=== PATIENT | female | born 1975 | race Hispanic/Latino ===

== ENCOUNTER 2018-11-09 09:55 | Outpatient (CLI) | payer MEDICARE, MEDICAID | END 2018-11-09 09:56 | disposition home or self-care (01) | LOC: C.PAT 09:55 | DX: T83.32XA Displacement of intrauterine contraceptive device, initial encounter (principal) ==

== ENCOUNTER 2018-11-13 09:20 | Day surgery (SDC) | payer MEDICARE, MEDICAID ==
[2018-11-13 10:13] VITALS: BMI 35.2
[2018-11-13] MEDS ORDERED: Dexamethasone 4 mg/1 ml IVP PRN (12:11)
[2018-11-13] MEDS ORDERED: HYDROmorphone 0.5 mg/0.5 ml ISec IVP PRN (12:11)
[2018-11-13] MEDS ORDERED: Midazolam 2 MG/2 ML VIAL ONE (12:47)
[2018-11-13] MEDS ORDERED: Propofol 10 mg/ml Inj (20 ML) ONE (12:47)
[2018-11-13] MEDS: Doxycycline 100 mg Inj ONE ×2 (13:10→13:20)
[2018-11-13] MEDS ORDERED: Lactated Ringer's 500 ML IV ONE (14:00)
[2018-11-13] MEDS ORDERED: Etomidate 20 mg/10ml Inj IV ONE (14:05)
[2018-11-13] MEDS ORDERED: DiphenhydrAMINE 50 mg/ml Inj ONE (14:47)
[2018-11-13] MEDS ORDERED: DiphenhydrAMINE 50 mg/ml Inj IVP STA (14:57)
[2018-11-13 17:11] VITALS: BP 103/58; PULSE 75; RESP 18; TEMP 97.8; O2SAT 97
--- NOTE | 2018-11-14 02:19 | OP ---
PROCEDURE DATE: 11/13/2018 PREOPERATIVE DIAGNOSIS: Retained foreign body. POSTOPERATIVE DIAGNOSIS: Retained foreign body intrauterine device. PROCEDURES PERFORMED: Hysteroscopic removal of retained foreign body, dilation and curettage. SURGEON: Amelia Lemus MD SENIOR COMPENSATION ANALYST: None. ANESTHESIA: General LMA. OPERATIVE FINDINGS: Enlarged 10-week size anteverted uterus with IUD embedded within right cornua, a fallopian tube string within near the fundus. Bilateral ostia visualized. Normal-appearing uterine cavity otherwise noted. ESTIMATED BLOOD LOSS: 10 mL. COMPLICATIONS: None. SPECIMEN: Retained foreign body intrauterine device. DESCRIPTION OF PROCEDURE: The patient was taken to the operating room where she was given general anesthesia. Once it was found to be adequate, she was placed on the operating room table in dorsal supine position with legs supported using stirrups. The patient was then prepped and draped in the usual sterile fashion. A time-out was performed to confirm correct patient and correct procedure. Bimanual exam was performed with the above-mentioned findings. Kwong retractor was placed on the anterior and posterior fornix of the vagina. The cervix was adequately visualized. A single-tooth tenaculum was placed on the anterior lip of the cervix. There was no IUD string noted at the cervical os. IUD hook was used to help the release of strings, which was not done. The cervix was carefully sequentially dilated to allow for introduction of the hysteroscope under direct visualization using normal saline as the distention media. The IUD was noted to be within the right cornua of the fallopian tube at the close proximity within the uterine cavity. A grasper was then inserted in the hysteroscopic operative port and was carefully removed. Hysteroscope with IUD was then removed intact. The specimen was sent for pathology. The hysteroscope was then re-introduced. There was good hemostasis noted. Hysteroscope was removed. All instruments were removed. There was good hemostasis noted at the tenaculum puncture site. At the end of the procedure, all needle, sponge and instrument counts were noted and correct x2. The patient tolerated the procedure well and was transferred to the recovery room in stable condition. Amelia Lemus MD [facility] # [id number]
== END 2018-11-13 17:20 | disposition home or self-care (01) ==
LOC: C.SDS 09:20
PROVIDERS: ATTEND Obstetrics & Gynecology
DX: T83.32XA Displacement of intrauterine contraceptive device, initial encounter (principal); E11.9 Type 2 diabetes mellitus without complications; Z79.84 Long term (current) use of oral hypoglycemic drugs; J84.10 Pulmonary fibrosis, unspecified; Z99.81 Dependence on supplemental oxygen
CPT/HCPCS: 58301; 82948; 88300; J1170; J1200; J1885; J2001; J2250; J2405; J2704; J3010; J7120